=== PATIENT | male | born 1960 | race African-American/Black ===

== ENCOUNTER 2016-04-08 14:25 | Emergency (ER) | payer OTHER ==
[~2016-04-08] VITALS: Ht 170.2 cm; Wt 84.7 kg
[~2016-04-08 14:25] MED LIST: ADVAIR 250/501 DISK IH; ALBUTEROL2.5 MG/3 M IH; AMITRIPTYLINE H10 MG PO; ANAPROX DS550 M1 PO; ASPIR-LOW81 MG PO; AUGMENTIN875 MG PO; COLACE100 MG PO; DESYREL100 MG PO; FLEXERIL5 MG PO; FLOMAX0.4 MG PO; GABAPENTIN100 MG PO; GLUCOPHAGE1000 MG PO; GLUCOPHAGE500 MG PO; HYDRALAZINE HCL25 MG PO; IMODIUM MS REL1 EACH PO; LISINOPRIL20 MG PO; LOPRESSOR50 MG PO; METHADONE10 MG PO; METOPROLOL; METOPROLOL SUC100 MG PO; METOPROLOL SUCC25 MG PO; METOPROLOL TART50 MG PO; NEURONTIN300 MG PO; OXYCODONE HCL30 MG PO; OXYCONTIN30 MG PO; PERCOCET 5/31 TABLET PO; PERCOCET 7.51 TABLET PO; PRAVACHOL80 MG; PRAVACHOL80 MG PO; PREDNISONE10 MG PO; PRINIVIL20 MG PO; PRINZIDE 20-121 EACH PO; PROTONIX40 MG PO; RANITIDINE HCL300 MG PO; SPIRIVA RESPIMAT4 GM IH; TAMIFLU75 MG PO; TRAZODONE HCL50 MG PO; VICODIN,LORT1 TABLET PO; VITAMIN D5000 UNI1 PO; VYTORIN 10-401 EACH PO; ZESTRIL,PRINIVI20 MG PO; ZITHROMAX Z-PA250 MG PO; ZITHROMAX500 MG PO; ZOLPIDEM TARTRA10 MG PO
[2016-04-08] MEDS ORDERED: ZESTRIL40 MG PO (15:07)
[2016-04-08] MEDS ORDERED: METFORMIN HCL500 MG PO (15:09)
[2016-04-08] MEDS ORDERED: OXYCODONE HCL30 MG PO (15:11)
[2016-04-08] MEDS ORDERED: ESCITALOPRAM OX20 MG PO (15:13)
[2016-04-08 16:25] VITALS: BP 144/90
== END 2016-04-08 16:33 | disposition home or self-care (01) ==
LOC: EME 14:25
DX: I10 Essential (primary) hypertension (principal); Z85.528 Personal history of other malignant neoplasm of kidney; J44.9 Chronic obstructive pulmonary disease, unspecified; F17.200 Nicotine dependence, unspecified, uncomplicated; E78.5 Hyperlipidemia, unspecified; E11.9 Type 2 diabetes mellitus without complications; G89.29 Other chronic pain; F43.9 Reaction to severe stress, unspecified; Z79.891 Long term (current) use of opiate analgesic
CPT/HCPCS: 99281; 99284

== ENCOUNTER 2016-11-03 11:08 | Emergency (ER) | payer OTHER ==
[~2016-11-03] VITALS: Ht 170.2 cm; Wt 83.0 kg
[~2016-11-03 11:08] MED LIST changes: +ESCITALOPRAM OX20 MG PO; +METFORMIN HCL500 MG PO; +ZESTRIL40 MG PO
[2016-11-03] MEDS ORDERED: FLONASE16 G1 BOTH NARES (13:16)
[2016-11-03 13:51] VITALS: BP 149/92
== END 2016-11-03 13:52 | disposition home or self-care (01) ==
LOC: EME 11:08
DX: J32.9 Chronic sinusitis, unspecified (principal); I10 Essential (primary) hypertension; F17.200 Nicotine dependence, unspecified, uncomplicated; E78.5 Hyperlipidemia, unspecified; E11.9 Type 2 diabetes mellitus without complications; Z79.84 Long term (current) use of oral hypoglycemic drugs; G89.29 Other chronic pain; Z87.442 Personal history of urinary calculi; Z85.528 Personal history of other malignant neoplasm of kidney
CPT/HCPCS: 99281; 99283

== ENCOUNTER 2017-01-26 12:53 | Emergency (ER) | payer OTHER ==
[~2017-01-26] VITALS: Ht 170.2 cm; Wt 86.6 kg
[~2017-01-26 12:53] MED LIST changes: +FLONASE16 G1 BOTH NARES
[2017-01-26] MEDS ORDERED: LIDODERM 5% P1 PATCH TD (14:38)
[2017-01-26] MEDS ORDERED: FLEXERIL10 MG PO (14:38)
[2017-01-26] MEDS ORDERED: PREDNISONE20 MG PO (14:38)
[2017-01-26] MEDS ORDERED: NAPROXEN500 MG PO (14:38)
[2017-01-26 14:58] VITALS: BP 176/102
== END 2017-01-26 15:08 | disposition home or self-care (01) ==
LOC: EME 12:53
DX: M54.42 Lumbago with sciatica, left side (principal); M79.605 Pain in left leg; I10 Essential (primary) hypertension; E78.5 Hyperlipidemia, unspecified; E11.9 Type 2 diabetes mellitus without complications; Z79.84 Long term (current) use of oral hypoglycemic drugs; Z85.528 Personal history of other malignant neoplasm of kidney; F17.200 Nicotine dependence, unspecified, uncomplicated
CPT/HCPCS: 93971; 99281; 99284; J1885; J7512

== ENCOUNTER 2017-02-03 01:45 | Emergency (ER) | payer OTHER ==
[~2017-02-03] VITALS: Ht 170.2 cm; Wt 86.7 kg
[~2017-02-03 01:45] MED LIST changes: +FLEXERIL10 MG PO; +LIDODERM 5% P1 PATCH TD; +NAPROXEN500 MG PO; +PREDNISONE20 MG PO
[2017-02-03 02:36] LABS: HEMATOCRIT 39.1 % (38.0-50.0); MCH 30.6 PG (29.0-34.0); MCHC 32.7 G/DL (30.0-36.0); MCV 93.5 FL (86-99); RBC DIS.WIDTH-CV 12.6 % (11.8-14.6); RBC DIS.WIDTH-SD 43.3 % (39-53); RED BLOOD COUNT 4.18 M/uL (4.00-5.50); WHITE BLOOD COUNT 9.2 K/uL (4.1-10.2)
[2017-02-03 02:47] LABS: CHLORIDE 104 mEq/L (99-109); POTASSIUM 3.7 mEq/L (3.7-5.4); SODIUM 139 mEq/L (136-147)
[2017-02-03 02:48] LABS: GLUCOSE 159 mg/dL (70-99)
[2017-02-03 02:50] LABS: ANION GAP 10 MEQ/L (2-14)
[2017-02-03 02:52] LABS: GFR ESTIMATE (CALCULATED) > 59 mL/min/
[2017-02-03 02:53] LABS: UREA NITROGEN (BUN) 12 mg/dL (9-23)
[2017-02-03 02:57] LABS: TROP-I INTERPRETATION NEGATIVE; TROPONIN-I < 0.01 ng/mL (0.0-0.30)
[2017-02-03 03:22] LABS: MEAN PLAT.VOLUME 11.4 uM^3 (9.0-12.4); PLAT.SUFFICIENCY ADEQUATE; PLATELET COUNT 187 K/uL (156-360)
[2017-02-03 04:08] VITALS: BP 181/101
== END 2017-02-03 04:09 | disposition home or self-care (01) ==
LOC: EME 01:45
PROVIDERS: Emergency Medicine
DX: I10 Essential (primary) hypertension (principal); Z91.14 Patient's other noncompliance with medication regimen; J44.9 Chronic obstructive pulmonary disease, unspecified; E78.5 Hyperlipidemia, unspecified; E11.9 Type 2 diabetes mellitus without complications; Z79.84 Long term (current) use of oral hypoglycemic drugs; G89.29 Other chronic pain; F41.9 Anxiety disorder, unspecified; F32.9 Major depressive disorder, single episode, unspecified; Z85.528 Personal history of other malignant neoplasm of kidney; Z87.442 Personal history of urinary calculi; F17.200 Nicotine dependence, unspecified, uncomplicated
CPT/HCPCS: 71020; 80048; 83880; 84484; 85027; 93005; 99281; 99284

== ENCOUNTER 2017-04-10 18:54 | Emergency (ER) | payer OTHER ==
[~2017-04-10] VITALS: Ht 170.2 cm; Wt 87.0 kg
[2017-04-10 19:08] VITALS: BP 163/92
== END 2017-04-10 21:29 | disposition left against medical advice (07) ==
LOC: EME 18:54
DX: M79.1 Myalgia (principal); Z53.21 Procedure and treatment not carried out due to patient leaving prior to being seen by health care provider

== ENCOUNTER 2017-05-08 10:00 | Observation (INO) | payer OTHER ==
[~2017-05-08] VITALS: Ht 170.2 cm; Wt 85.8 kg
[~2017-05-08 10:00] MED LIST changes: -HYDRALAZINE HCL25 MG PO; +HYDRALAZINE HCL50 MG PO
[2017-05-08 10:40] LABS: BASOPHIL (%) 0.2 % (0-1); EOSINOPHIL (%) 1.8 % (0-5); EOSINOPHIL COUNT 0.1 K/uL (0-0.3); HEMATOCRIT 36.4 % (38.0-50.0); HEMOGLOBIN 12.2 G/DL (12.5-16.6); IMMATURE GRANULOCYTE (%) 0.2 % (0.0-0.7); LYMPHOCYTE (%) 22.9 % (15-42); LYMPHOCYTE COUNT 1.4 K/uL (1.0-2.8); MCH 30.8 PG (29.0-34.0); MCHC 33.5 G/DL (30.0-36.0); MCV 91.9 FL (86-99); MONOCYTE (%) 6.9 % (3-12); MONOCYTE COUNT 0.4 K/uL (0-0.8); NEUTROPHIL COUNT 4.1 K/uL (1.8-6.4); PLATELET COUNT 165 K/uL (156-360); RBC DIS.WIDTH-CV 11.9 % (11.8-14.6); RBC DIS.WIDTH-SD 40.7 % (39-53); RED BLOOD COUNT 3.96 M/uL (4.00-5.50)
[2017-05-08 10:46] LABS: INTER. NORMALIZED RATIO 1.1
[2017-05-08 10:49] LABS: PTT 30.5 SEC (25-37)
[2017-05-08 10:51] LABS: CHLORIDE 105 mEq/L (99-109); POTASSIUM 4.1 mEq/L (3.7-5.4); SODIUM 140 mEq/L (136-147)
[2017-05-08 10:53] LABS: GLUCOSE 113 mg/dL (70-99)
[2017-05-08 10:57] LABS: GFR ESTIMATE (CALCULATED) > 59 mL/min/ (58.99-99999); UREA NITROGEN (BUN) 12 mg/dL (9-23)
[2017-05-08 11:05] LABS: TROP-I INTERPRETATION NEGATIVE; TROPONIN-I 0.02 ng/mL (0.0-0.30)
[2017-05-08] MEDS ORDERED: FLONASE16 G1 BOTH NARES (11:57)
[2017-05-08] MEDS ORDERED: ALBUTEROL0.63 MG/3 IH (11:58)
[2017-05-08] MEDS ORDERED: MIRALAX17 GM PO (11:58)
[2017-05-08] MEDS ORDERED: NARCAN4 MG NS (11:58)
[2017-05-08] MEDS ORDERED: BUSPAR15 MG PO (11:59)
[2017-05-08] MEDS ORDERED: OMEPRAZOLE20 MG PO (11:59)
[2017-05-08] MEDS ORDERED: COLACE100 MG PO (11:59)
[2017-05-08 14:07] VITALS: BP 135/65
[2017-05-08 16:22] VITALS: BP 167/81
[2017-05-08 19:16] LABS: TROP-I INTERPRETATION NEGATIVE; TROPONIN-I < 0.01 ng/mL (0.0-0.30)
[2017-05-08 19:30] VITALS: BP 117/70
[2017-05-08 23:16] VITALS: BP 136/70
[2017-05-09 03:06] LABS: TROP-I INTERPRETATION NEGATIVE; TROPONIN-I < 0.01 ng/mL (0.0-0.30)
[2017-05-09 03:38] VITALS: BP 119/72
[2017-05-09 08:18] VITALS: BP 130/77
[2017-05-09] MEDS ORDERED: ASPIR-LOW81 MG PO (09:31)
[2017-05-09] MEDS ORDERED: NICOTINE PATCH1 EAC2 TD (09:31)
== END 2017-05-09 11:06 | disposition home or self-care (01) ==
LOC: EME 10:00 → EDOF 11:25 → 5WEST 11:25 → EDOF 11:25 → ENRESERV 11:27 → EDOF 12:35 → 5WEST 13:49
PROVIDERS: Emergency Medicine; Internal Medicine
DX: R07.9 Chest pain, unspecified (principal); I10 Essential (primary) hypertension; E11.9 Type 2 diabetes mellitus without complications; E78.5 Hyperlipidemia, unspecified; F17.200 Nicotine dependence, unspecified, uncomplicated; Z90.5 Acquired absence of kidney; Z85.528 Personal history of other malignant neoplasm of kidney; Z82.49 Family history of ischemic heart disease and other diseases of the circulatory system; G89.29 Other chronic pain; M54.9 Dorsalgia, unspecified; Z79.891 Long term (current) use of opiate analgesic; Z79.84 Long term (current) use of oral hypoglycemic drugs
CPT/HCPCS: 71045; 80048; 82948; 84484; 85025; 85610; 85730; 87641; 93005; 99281; 99285; G0378; J1650; J1815